=== PATIENT | female | born 1985 | race Caucasian/White ===

== ENCOUNTER 2016-10-02 22:54 | Emergency (ER) | payer BC ==
[2016-10-03] MEDS ORDERED: NORMAL SALINE 1000 ML 1,000 ML IV ONE
[2016-10-03] MEDS ORDERED: OXYCODONE-ACETAMINOPHEN 5-325 MG TABLET PO ONE (00:12)
[2016-10-03 01:22] LABS: ABSOLUTE EOSINOPHILS # (AUTO) 0.1 10^3/uL (0.0-0.6); ABSOLUTE LYMPHOCYTES (AUTO) 1.4 10^3/uL (0.5-4.7); ABSOLUTE MONOCYTES (AUTO) 0.6 10^3/uL (0.1-1.4); ABSOLUTE NEUT (AUTO) 9.2 10^3/uL (1.7-8.2); BASOPHILS % (AUTO) 0.2 % (0-2); EOSINOPHILS % (AUTO) 0.6 % (0-6); LYMPHOCYTES % (AUTO) 12.4 % (13-45); MEAN CORPUSCULAR HEMOGLOBIN 29.9 pg (27.0-33.4); MEAN CORPUSCULAR HGB CONC 33.3 g/dL (32.0-36.0); MEAN CORPUSCULAR VOLUME 90 fl (80-97); MONOCYTES % (AUTO) 5.6 % (3-13); RED BLOOD COUNT 3.67 10^6/uL (3.72-5.28); RED CELL DISTRIBUTION WIDTH 12.3 % (11.5-14.0); SEGMENTED NEUTROPHILS % (AUTO) 81.2 % (42-78); WHITE BLOOD COUNT 11.3 10^3/uL (4.0-10.5)
--- NOTE | 2016-10-03 01:29 | ER Document Report ---
ED Hand/Wrist Injury - General Time seen by provider: 23:50 Mode of Arrival: Ambulatory Information source: Patient TRAVEL OUTSIDE OF THE [place] IN LAST 30 DAYS: No - HPI Injury to: Hand, Wrist Onset: Other - see HPI Quality of pain: Pressure, Throbbing Severity: Mild Context: Swelling <MILVIA DALAL - Last Filed: 10/03/16 01:01> <SHIRLEY ZARAGOZA - Last Filed: 10/03/16 03:02> - General Chief Complaint: Wrist Pain Stated Complaint: WRIST PAIN Notes: Patient is a 30-year-old female presented to the emergency department with complaints of pain and inflammation to her left wrist. Patient is 10 weeks . Patient states in 2005 she had a tendon reconnection surgery on her left wrist. Patient states that they placed 2 pins in her left wrist. Patient states that 2 years ago she had x-rays and was told that the pins looked like a they may not be in place anymore. Patient was seeing a doctor in [place] and states that they discussed doing a nerve surgery; patient states that she got scared of the possible surgery and had not returned to see this doctor. Patient does have an appointment with Dr. Pablo this coming Thursday (10/10/16). Patient states that she woke up tonight with her fingers tingling and described her pain to her wrist and hand as "pins and needles." Patient states that she has had some inflammation and pain over the past 10 years but it was more severe tonight. Patient states that this particular episode of inflammation and pain started 3 days ago. Patient states that she had some diarrhea, sweats, and felt flushed at the time of the pain. Patient is unsure if she ate something that caused the diarrhea. Patient states she can barely move her fingers and hand. Patient has no known allergies. (MILVIA DALAL) - Related Data Allergies/Adverse Reactions: No Known Allergies Allergy (Unverified 09/26/11 12:07) Past Medical History - General Information source: Patient - Social History Smoking Status: Never Smoker Cigarette use (# per day): No Chew tobacco use (# tins/day): No Frequency of alcohol use: None Drug Abuse: None Family History: None Renal/ Medical History: Reports: Hx Ovarian Cysts GI Medical History: Reports: Hx Gastroesophageal Reflux Disease, Hx Ulcer Psychiatric Medical History: Reports: Hx Depression Traumatic Medical History: Reports: Hx Fractures - lt wrist Past Surgical History: Reports: Hx Orthopedic Surgery - tendon repair left wrist <MILVIA DALAL - Last Filed: 10/03/16 01:01> Review of Systems - Review of Systems Constitutional: No symptoms reported EENT: No symptoms reported Cardiovascular: No symptoms reported Respiratory: No symptoms reported Gastrointestinal: No symptoms reported Genitourinary: No symptoms reported Female Genitourinary: No symptoms reported Musculoskeletal: See HPI, Joint pain, Joint swelling Skin: No symptoms reported Hematologic/Lymphatic: No symptoms reported Neurological/Psychological: No symptoms reported <MILVIA DALAL - Last Filed: 10/03/16 01:01> Physical Exam - Vital signs Interpretation: Normal - General General appearance: Appears well, Alert In distress: Mild - HEENT Head: Normocephalic, Atraumatic Eyes: Normal Pupils: PERRL Mucous membranes: Normal - Respiratory Respiratory status: No respiratory distress Chest status: Nontender Breath sounds: Normal Chest palpation: Normal - Cardiovascular Rhythm: Regular Heart sounds: Normal auscultation Murmur: No - Abdominal Inspection: Normal Distension: No distension Bowel sounds: Normal Tenderness: Nontender Organomegaly: No organomegaly - Back Back: Normal, Nontender - Extremities General lower extremity: Normal inspection, Normal ROM, Normal strength Wrist: Tender, Other - swelling over dorsal aspect of left wrist over the old surgery incisions, no erythema, no fluctuance, no induration, no drainage, decreased ability for flexion/extension, good capillary refill, 2+ pulses bilaterally - Neurological Neuro grossly intact: Yes Cognition: Normal Orientation: AAOx4 [place] Coma Scale Eye Opening: Spontaneous [place] Coma Scale Verbal: Oriented [place] Coma Scale Motor: Obeys Commands [place] Coma Scale Total: 15 Speech: Normal Sensory: Normal - Psychological Associated symptoms: Normal affect, Normal mood - Skin Skin Temperature: Warm Skin Moisture: Dry <MILVIA DALAL - Last Filed: 10/03/16 01:01> Course <MILVIA DALAL - Last Filed: 10/03/16 01:01> - Laboratory Result Diagrams: 10/03/16 01:10 10/03/16 01:10 - Diagnostic Test Radiology reviewed: Image reviewed, Reports reviewed <SHIRLEY ZARAGOZA - Last Filed: 10/03/16 03:02> - Re-evaluation Re-evalutation: 10/03/16 02:23 Patient with no acute findings on blood work or imaging. No evidence for infection. CRP and ESR not elevated. Patient did have some diarrhea which is now resolved. No cramping or bleeding. Patient will be discharged home with a cock-up splint and is to follow-up with hand surgery. Stable for discharge. ( SHIRLEY ZARAGOZA) - Vital Signs Vital signs: Temp Pulse Resp BP Pulse Ox 98.0 F 87 18 101/57 L 98 10/02/16 23:03 10/02/16 23:03 10/02/16 23:40 10/02/16 23:03 10/02/16 23:03 (MILVIA DALAL) (SHIRLEY ZARAGOZA) - Laboratory Laboratory results interpreted by me: 10/03/16 01:10 WBC 11.3 H RBC 3.67 L Hgb 11.0 L Hct 33.0 L Seg Neutrophils % 81.2 H Lymphocytes % 12.4 L Absolute Neutrophils 9.2 H (SHIRLEY ZARAGOZA) Procedures - Immobilization Left Wrist Pre-Proc Neuro Vasc Exam: Normal Immobilizer type: Cock-up Performed by: PCT Post-Proc Neuro Vasc Exam: Normal Alignment checked and good: Yes <SHIRLEY ZARAGOZA - Last Filed: 10/03/16 03:02> Discharge <MILVIA DALAL - Last Filed: 10/03/16 01:01> <SHIRLEY ZARAGOZA - Last Filed: 10/03/16 03:02> - Discharge Clinical Impression: Swelling of joint, wrist, left Wrist pain Qualifiers: Laterality: left Qualified Code(s): M25.532 - Pain in left wrist Condition: Stable Disposition: HOME, SELF-CARE Instructions: Carpal Tunnel Syndrome ([facility]) Additional Instructions: Please follow-up with the hand surgeon as scheduled regarding your wrist pain. Please return if you have any redness, discharge, or fever. Prescriptions: Oxycodone HCl/Acetaminophen [Percocet 5-325 mg Tablet] 1 - 2 tab PO Q4H PRN #15 tablet PRN Reason: Referrals: LIZABETH PABLO DO [ACTIVE STAFF] - Follow up as needed Scribe Attestation: 10/03/16 03:02 I personally performed the services described in the documentation, reviewed and edited the documentation which was dictated to the scribe in my presence, and it accurately records my words and actions. (SHIRLEY ZARAGOZA) Scribe Documentation - Scribe Written by Scribdonavan:: Milvia Dalal 01:33 10/03/16 acting as scribe for :: [place] <MILVIA DALAL - Last Filed: 10/03/16 01:01>
[2016-10-03 01:45] LABS: ALANINE AMINOTRANSFERASE 26 U/L (9-52); ALKALINE PHOSPHATASE 48 U/L (38-126); ANION GAP 10 (5-19); ASPARTATE AMINO TRANSFERASE 14 U/L (14-36); BILIRUBIN,TOTAL 0.3 mg/dL (0.2-1.3); BLOOD UREA NITROGEN 14 mg/dL (7-20); CALCIUM 9.6 mg/dL (8.4-10.2); CARBON DIOXIDE 23 mmol/L (22-30); CHLORIDE 105 mmol/L (98-107); CREATININE RESULT 0.56 mg/dL (0.52-1.25); GLUCOSE 88 mg/dL (75-110); POTASSIUM 3.9 mmol/L (3.6-5.0); SODIUM 138.1 mmol/L (137-145); TOTAL PROTEIN 6.3 g/dL (6.3-8.2)
[2016-10-03 01:52] LABS: C-REACTIVE PROTEIN 5.9 mg/L (<10.0)
[2016-10-03 02:00] LABS: ERYTHROCYTE SEDIMENTATION RATE 15 mm/hr (0-20)
[2016-10-03 03:05] VITALS: BP 110/62
== END 2016-10-03 03:05 | disposition home or self-care (01) ==
LOC: ER 22:54
PROC: 2W3DX1Z Immobilization of Left Lower Arm using Splint (ICD-10-PCS; principal; 2016-10-02)
DX: O26.91 Pregnancy related conditions, unspecified, first trimester (principal); M25.532 Pain in left wrist; Z3A.10 10 weeks gestation of pregnancy
CPT/HCPCS: 99283; 96360; 36415; 85025; 85652; 86140; 80053; 73110; L3984; J7030

== ENCOUNTER 2017-04-20 06:26 | Inpatient (IN) | payer BC ==
[2017-04-17 09:50] LABS: ABSOLUTE LYMPHOCYTES (AUTO) 1.6 10^3/uL (0.5-4.7); ABSOLUTE MONOCYTES (AUTO) 0.7 10^3/uL (0.1-1.4); BASOPHILS % (AUTO) 0.3 % (0-2); EOSINOPHILS % (AUTO) 0.5 % (0-6); HEMATOCRIT 35.3 % (36.0-47.0); HEMOGLOBIN 12.3 g/dL (12.0-15.5); HGB HCT DIFFERENCE 1.6; MEAN CORPUSCULAR HEMOGLOBIN 31.7 pg (27.0-33.4); MEAN CORPUSCULAR HGB CONC 34.8 g/dL (32.0-36.0); MEAN CORPUSCULAR VOLUME 91 fl (80-97); MONOCYTES % (AUTO) 8.9 % (3-13); RED BLOOD COUNT 3.88 10^6/uL (3.72-5.28); RED CELL DISTRIBUTION WIDTH 13.7 % (11.5-14.0); SEGMENTED NEUTROPHILS % (AUTO) 71.3 % (42-78); WHITE BLOOD COUNT 8.5 10^3/uL (4.0-10.5)
[2017-04-17 09:52] LABS: APPEARANCE,URINE CLEAR; BILIRUBIN,URINE NEGATIVE (NEGATIVE); GLUCOSE, URINE NEGATIVE (NEGATIVE); KETONES,URINE NEGATIVE (NEGATIVE); LEUKOCYTE ESTERASE,URINE NEGATIVE (NEGATIVE); NITRITE,URINE NEGATIVE (NEGATIVE); PROTEIN,URINE NEGATIVE (NEGATIVE); URINE SPECIFIC GRAVITY 1.005; UROBILINOGEN,URINE NEGATIVE mg/dL (<2.0)
[2017-04-17 10:07] LABS: URINE BARBITURATES SCREEN NEGATIVE; URINE METHADONE SCREEN NEGATIVE; URINE OPIATES LOW NEGATIVE; URINE PHENCYCLIDINE SCREEN NEGATIVE
[~2017-04-20 06:26] MED LIST: LACTATED RINGERS 1000 ML IV PRN
[2017-04-20] MEDS ORDERED: OXYTOCIN 10 UNIT/ML VIAL ONE (07:25)
[2017-04-20] MEDS ORDERED: MIDAZOLAM 2 MG/2 ML INJ ONE (07:26)
[2017-04-20] MEDS ORDERED: FENTANYL CITRATE INJ/PF 100 MCG/2 ML AMPUL ONE (07:26)
[2017-04-20] MEDS ORDERED: EPHEDRINE SULFATE INJ 50 MG/1 ML AMPULE ONE (07:26)
[2017-04-20] MEDS ORDERED: CEFAZOLIN 1 GM/D5W RTU 1 GM/50 ML RTUPB IV PRN (07:36)
[2017-04-20] MEDS ORDERED: RINGERS SOLUTION,LACTATED 1,000 ML IV PRN (07:39)
[2017-04-20] MEDS ORDERED: CEFAZOLIN INJ 1 GM VIAL ONE (09:04)
[2017-04-20] MEDS ORDERED: MORPHINE SULFATE 10 MG/ML INJ IV PRN (09:39)
[2017-04-20] MEDS ORDERED: OXYCODONE-ACETAMINOPHEN 5-325 MG TABLET PO PRN ×3 (09:39→12:00)
[2017-04-20] MEDS ORDERED: MEPERIDINE HCL/PF INJ 25 MG/1 ML DISP.SYRIN IV PRN (09:39)
[2017-04-20] MEDS ORDERED: PROMETHAZINE HCL INJ 25 MG/1 ML VIAL IV PRN ×2 (09:39)
[2017-04-20] MEDS ORDERED: FENTANYL CITRATE INJ/PF 100 MCG/2 ML AMPUL IV PRN ×3 (09:39)
[2017-04-20] MEDS ORDERED: DIPHENHYDRAMINE HCL 50 MG/ML VIAL IV PRN (09:39)
[2017-04-20] MEDS ORDERED: KETOROLAC TROMETHAMINE INJ/PF 30 MG/1 ML SDV ONE (09:59)
[2017-04-20] MEDS ORDERED: OXYTOCIN/NORMAL SALINE 20 UNIT/1,000 ML RTUINJ ONE (09:59)
[2017-04-20] MEDS ORDERED: MEPERIDINE HCL/PF INJ 25 MG/1 ML DISP.SYRIN ONE (10:20)
[2017-04-20] MEDS ORDERED: ACETAMINOPHEN 100 ML IV ONE (10:30)
--- NOTE | 2017-04-20 11:05 | OPERATIVE REPORT E ---
Operative Report NAME: GRACE VARGHESE : 1985 AGE: 31Y DATE OF SURGERY: 04/20/2017 ROOM: 227 PREOPERATIVE DIAGNOSIS: Intrauterine at 39 weeks with history of x2 and desire for repeat. POSTOPERATIVE DIAGNOSIS: Intrauterine at 39 weeks with history of x2 and desire for repeat. OPERATION: Repeat low-transverse cervical section. SURGEON: DAVID SOLIS M.D. ANESTHESIA: Spinal. ESTIMATED BLOOD LOSS: 500 mL. SPECIMEN TO PATHOLOGY: None. The placenta was discarded. FINDINGS: Mccoy male , vertex presentation, clear amniotic fluid. Tubes and ovaries appeared normal. There was a very thin lower uterine segment, especially on the patient's right. DESCRIPTION OF PROCEDURE: After discussing risks, benefits, and alternatives of the procedure and obtaining informed consent, the patient was taken to the operating room where spinal anesthesia was achieved. She was positioned in a dorsal supine position with a leftward tilt. She was prepped and draped in the standard fashion. Pfannenstiel skin incision was made and the abdomen was entered in layers in the standard fashion. A low-transverse cervical incision was made with the C-SAFE knife. The surgeon's hand was entered into the hysterotomy incision. The vertex was delivered easily. The shoulders and body delivered easily thereafter. Nasopharynx and oropharynx were bulb suctioned. Cord was clamped and cut. Infant was handed to Pediatrics who were present. The placenta was manually extracted. The uterus was exteriorized and cleared of all clots and debris. The hysterotomy incision was closed with 0 Monocryl in a running, locked fashion. The right aspect of the incision had some oozing and a [id number] was oversewn on the right aspect of the incision and hemostasis achieved. The uterus, tubes and ovaries were returned to the peritoneal cavity. The cavity was irrigated and hemostasis again assured. A layer of INTERCEED was placed over the anterior aspect of the uterus and lower uterine segment. The peritoneum was closed with 2-0 Vicryl in a pursestring fashion. Rectus muscles were loosely reapproximated with 2-0 Vicryl in an interrupted fashion. The subfascial spaces were inspected and noted to be hemostatic. The fascia was closed with #1 Vicryl. Subcutaneous tissues were irrigated and hemostasis achieved with cautery. A 3-0 plain gut was used to reapproximate the subcutaneous tissues. A 4-0 Monocryl was used to close the skin in a subcuticular fashion. OpSite dressing was applied. The patient was taken to recovery in stable condition. All sponge, needle, lap and instrument counts were correct x2. DICTATING PHYSICIAN: DAVID SOLIS M.D. [id number] PHY#: [id number] ID: [id number] JOB#: [id number] ACCT: [id number] cc:DAVID SOLIS M.D. >
[2017-04-20] MEDS ORDERED: MORPHINE SULFATE 10 MG/ML INJ ONE (11:23)
[2017-04-20] MEDS ORDERED: OXYTOCIN/NORMAL SALINE 20 UNIT/1,000 ML RTUINJ INJ PRN (11:50)
[2017-04-20] MEDS ORDERED: PROMETHAZINE HCL INJ 25 MG/1 ML VIAL IM PRN (12:00)
[2017-04-20] MEDS ORDERED: RINGERS SOLUTION,LACTATED 1,000 ML IV SCH (12:00)
[2017-04-20] MEDS ORDERED: ACETAMINOPHEN 325 MG TABLET PO PRN (12:00)
[2017-04-20] MEDS ORDERED: HYDROMORPHONE HCL INJ/PF 2 MG/ML AMPULE IV PRN (12:00)
[2017-04-20] MEDS ORDERED: MEASLES,MUMPS&RUBELLA VACC/PF 0.5 ML VIAL SUBCUT PRN (12:00)
[2017-04-20] MEDS ORDERED: DIPH/PERTUSS(ACELL)/TETANUS VAC/PF 0.5 ML SYR (>=10YO) IM PRN (12:00)
[2017-04-20] MEDS: OXYCODONE-ACETAMINOPHEN 5-325 MG TABLET PO PRN ×2 (13:36→20:04)
[2017-04-20] MEDS ORDERED: KETOROLAC TROMETHAMINE INJ/PF 30 MG/1 ML SDV IV SCH ×2 (14:00)
[2017-04-20] MEDS ORDERED: ACETAMINOPHEN 100 ML IV SCH (14:00)
[2017-04-20] MEDS: DOCUSATE SODIUM 100 MG CAPSULE PO SCH (17:18)
[2017-04-20] MEDS: KETOROLAC TROMETHAMINE INJ/PF 30 MG/1 ML SDV IV SCH (17:18)
[2017-04-21] MEDS: KETOROLAC TROMETHAMINE INJ/PF 30 MG/1 ML SDV IV SCH (01:59)
[2017-04-21] MEDS: SIMETHICONE 80 MG TAB.CHEW PO PRN ×3 (02:01→15:03)
[2017-04-21] MEDS: OXYCODONE-ACETAMINOPHEN 5-325 MG TABLET PO PRN ×4 (02:02→23:07)
[2017-04-21 06:10] LABS: HEMATOCRIT 30.3 % (36.0-47.0); HEMOGLOBIN 10.6 g/dL (12.0-15.5); HGB HCT DIFFERENCE 1.5; MEAN CORPUSCULAR HEMOGLOBIN 31.5 pg (27.0-33.4); MEAN CORPUSCULAR HGB CONC 34.8 g/dL (32.0-36.0); MEAN CORPUSCULAR VOLUME 90 fl (80-97); RED BLOOD COUNT 3.35 10^6/uL (3.72-5.28); RED CELL DISTRIBUTION WIDTH 13.5 % (11.5-14.0); WHITE BLOOD COUNT 11.5 10^3/uL (4.0-10.5)
[2017-04-21] MEDS: IBUPROFEN 800 MG TABLET PO SCH ×3 (08:53→21:09)
[2017-04-21] MEDS: PRENATAL VITAMIN W-O CA NO5/FE FUMARATE/FA CAPSULE PO SCH (09:45)
[2017-04-21] MEDS: DOCUSATE SODIUM 100 MG CAPSULE PO SCH ×2 (09:46→17:26)
--- NOTE | 2017-04-21 12:29 | PDOC PROGRESS REPORT ---
Subjective-OB Subjective: Post Delivery Day:1 31 year old G3 now P3 s/p repeat delivery ppd1. Ambulating, voiding and without difficulty. Physical Exam (OB) Vital Signs: Temp Pulse Resp BP Pulse Ox 98.1 F 96 16 123/81 100 04/21/17 07:51 04/21/17 07:51 04/21/17 07:51 04/21/17 07:51 04/21/17 07:51 Intake & Output 04/20/17 04/21/17 04/22/17 06:59 06:59 06:59 Intake Total 1005 Output Total 1710 Balance -705 Weight 83.461 kg - General General Appearance: Appears well In distress: None - Dressing Removed: No - opsite Note: old blood marked on dressing no new blood noted - Lochia Lochia Amount: Scant < 10 ml Lochia Color: Rubra/Red - Abdomen Description: Soft, Round Hernia Present: No Fundal Description: Firm, Midline Fundal Height: u/u - u/2 - Respiratory Respiratory Status: No respiratory distress - Extremities Upper extremity: Normal inspection Lower extremities: Normal inspection - Neurological Cognition: Normal Orientation: AAOx4 - Psychological Associated symptoms: Normal affect, Normal mood Objective-Diagnostic Laboratory: 04/21/17 06:01 04/21/17 04/21/17 06:01 06:01 WBC 11.5 H RBC 3.35 L Hgb 10.6 L Hct 30.3 L MCV 90 MCH 31.5 MCHC 34.8 RDW 13.5 Plt Count 215 Blood Type O NEGATIVE Assessment and Plan(PN) - Assessment and Plan (1) Delivery by elective caesarean section Is this a current diagnosis for this admission?: YesPlan: continue stay (2) Acute blood loss anemia Is this a current diagnosis for this admission?: YesPlan: FeSO4 supplementation and increase dietary iron - Time Spent with Patient Time with patient: 15-25 minutes Medications reviewed and adjusted accordingly: Yes - Disposition Anticipated Discharge: Home Within: within 24 hours
[2017-04-22] MEDS: IBUPROFEN 800 MG TABLET PO SCH ×2 (02:10→09:15)
[2017-04-22] MEDS: DOCUSATE SODIUM 100 MG CAPSULE PO SCH (09:15)
[2017-04-22] MEDS: PRENATAL VITAMIN W-O CA NO5/FE FUMARATE/FA CAPSULE PO SCH (09:16)
--- NOTE | 2017-04-22 10:27 | PDOC PROGRESS REPORT ---
Subjective-OB Subjective: Post Delivery Day: 31 year old. Denies any needs at this time. Ready to go home. Still refusing to receive rhogam. Has been counseled extensively and states she understands the risk for future pregnancies. Physical Exam (OB) Vital Signs: Temp Pulse Resp BP Pulse Ox 98.7 F 89 16 127/86 H 99 04/22/17 07:41 04/22/17 07:41 04/22/17 07:41 04/22/17 07:41 04/22/17 07:41 Intake & Output 04/21/17 04/22/17 04/23/17 06:59 06:59 06:59 Intake Total 1005 500 Output Total 1710 Balance -705 500 Weight 83.461 kg - Dressing Removed: No Incision: Dressing Closure Type: Sutures - Lochia Lochia Amount: Scant < 10 ml Lochia Color: Rubra/Red - Abdomen Description: Soft, Round Hernia Present: No Bowel Sounds: Normoactive Flatus Presence: Present Stool: No Fundal Description: Firm, Midline Fundal Height: u/u - u/2 Objective-Diagnostic Laboratory: 04/21/17 06:01 04/21/17 06:01 Blood Type O NEGATIVE Assessment and Plan(PN) - Time Spent with Patient Medications reviewed and adjusted accordingly: Yes - Disposition Anticipated Discharge: Home
--- NOTE | 2017-04-22 10:42 | PDOC DISCHARGE SUMMARY ---
Final Diagnosis Discharge Date: 04/22/17 - Final Diagnosis (1) Acute blood loss anemia Is this a current diagnosis for this admission?: Yes (2) Delivery by elective caesarean section Is this a current diagnosis for this admission?: Yes (3) History of HPV infection Is this a current diagnosis for this admission?: Yes (4) Positive GBS test Is this a current diagnosis for this admission?: Yes (5) Is this a current diagnosis for this admission?: Yes (6) Refused Rhogam Is this a current diagnosis for this admission?: Yes Discharge Data - Discharge Medication Home Medications: Vit #116/Iron/FA/Dha [ Formula-Dha Softgel] 2 cap PO DAILY 12/29 Docusate Sodium [Colace 100 mg Capsule] 100 mg PO BID #30 capsule 04/22/17 Ibuprofen [Motrin 800 mg Tablet] 800 mg PO Q6A #30 tablet 04/22/17 Oxycodone HCl/Acetaminophen [Percocet 5-325 mg Tablet] 1 tab PO Q4HP PRN #20 tablet 04/22/17 Gestational Age: 39 wks Reason(s) for Admission: Ceasarean Section-Repeat Procedures: Ultrasound Intrapartum Procedure(s): : Low Cervical, Transverse - Waterfall Data Baby 1 Male at 1 minute: 7 at 5 minutes: 8 Weight: 33.3 kg Home with Mother: Yes Complications: No - Diagnosis Test Laboratory: Temp Pulse Resp BP Pulse Ox 98.7 F 89 16 127/86 H 99 04/22/17 07:41 04/22/17 07:41 04/22/17 07:41 04/22/17 07:41 04/22/17 07:41 04/17/17 04/17/17 04/21/17 09:07 09:13 06:01 RBC 3.88 3.35 L Hgb 12.3 10.6 L Hct 35.3 L 30.3 L Urine Opiates Screen NEGATIVE - Discharge information/Instructions Discharge Activity: Activity As Tolerated, Balance Activity w/Rest, No Lifting Over 10 Pounds, No Lifting/Push/Pulling, Non-Ambulatory Child, Pelvic Rest, Slowly Increase Activity, No tub bath Discharge Diet: Regular Disposition: HOME, SELF-CARE Follow [facility] with: [facility] in: 1, Weeks
[2017-04-22 11:04] VITALS: BP 132/92
== END 2017-04-22 12:40 | disposition home or self-care (01) | DRG 765 ==
LOC: 2S 06:26
PROVIDERS: ADMIT Specialist; ATTEND Specialist
PROC: 4A1HXCZ Monitoring of Products of Conception, Cardiac Rate, External Approach (ICD-10-PCS; 2017-04-20)
PROC: 10D00Z1 Extraction of Products of Conception, Low, Open Approach (ICD-10-PCS; principal; 2017-04-20 08:30)
DX: O34.211 Maternal care for low transverse scar from previous cesarean delivery (principal); D62 Acute posthemorrhagic anemia; O99.02 Anemia complicating childbirth; O99.824 Streptococcus B carrier state complicating childbirth; Z67.41 Type O blood, Rh negative; Z28.21 Immunization not carried out because of patient refusal; Z3A.39 39 weeks gestation of pregnancy; Z37.0 Single live birth
CPT/HCPCS: 1961; 36415; 80307; 81001; 85025; 85027; 85461; 86850; 86870; 86900; 86901; 94799; C1765; J0131; J0690; J1885; J2175; J2250; J2270; J2590; J2790; J3010; J3490